=== PATIENT | female | born 1990 | race Caucasian/White ===

== ENCOUNTER 2016-12-18 16:35 | Emergency (ER) | payer OTHER ==
[~2016-12-18] VITALS: Ht 162.6 cm; Wt 109.0 kg
[~2016-12-18 16:35] MED LIST: LEVO150T PO; PRENTAB26 PO
[2016-12-18 16:48] VITALS: TEMP 36.8; Ht 162.6 cm; Wt 109.0 kg
[2016-12-18] MEDS ORDERED: SODIUM CHLORIDE 0.9% 1000ML 2,000 ML IV STA (17:23)
[2016-12-18] MEDS ORDERED: ACETAMINOPHEN 500 MG TAB PO STA (17:23)
[2016-12-18] MEDS ORDERED: LOPERAMIDE HCL 2 MG CAP PO STA (17:23)
[2016-12-18] MEDS ORDERED: BCPILLS PO (17:37)
--- NOTE | 2016-12-18 17:48 | EMERGENCY ROOM VISIT NOTE ---
History Report prepared by Arlet: Jose Aviles Under the Supervision of: Dr. Aydin Carroll M.D. First contact with patient: 17:17 Chief Complaint: DEHYDRATION Stated Complaint: DIARRHEA, CRAMPS, STOMACH PAIN, DEHYDRATATION Nursing Triage Summary: triage note: pt reports she got sick in the [facility] last thursday - returned on thursday - diarrhea, abd cramping, nausea. pt denies any ill contact. History of Present Illness The patient is a 26 year old female who presents to the Emergency Room with complaints of intermittent diarrhea that started six days ago. She rates her discomfort as a 10/10 in severity. She reports that she visited the [facility] 9 days ago and started to experience diarrhea and stomach cramps six days ago. The patient states that she returned home four days ago and has still been feeling ill. She reports that she was experiencing dehydration, diaphoresis , and chills last night and has not been able to eat because she would experience diarrhea each time she ate. She reports she has been to the [facility] six times and gets sick every time but admits she may have ingested water this time. She admits that she has abdominal pain whenever she feels she needs to have a bowel movement. The patient denies being sick this long after her prior trips and denies previous abdominal pain. The patient denies taking any medication for her symptoms. She reports that she is currently taking Synthroid and Control Pills daily. The patient denies urinary symptoms and . Source of History: patient Onset: 6 days ago Position: other (global) Symptom Intensity: 10/10 Timing: intermittent Modifying Factors (Worsening): eating Associated Symptoms: + fevers, + chills, + diaphoresis, + abdominal pain, No urinary symptoms Review of Systems See HPI for pertinent positives & negatives. A total of 10 systems reviewed and were otherwise negative. Past Medical & Surgical Medical Problems: (1) Hypertension (2) with 39 completed weeks gestation Family History Patient reports no known family medical history. Social History Smoking Status: Never Smoker Drug Use: none Marital Status: in relationship Current/Historical Medications Scheduled Control Pills ( Control Pills), 1 TAB PO DAILY Levothyroxine Sodium (Synthroid), 1 TAB PO DAILY Allergies Coded Allergies: No Known Allergies (Unverified , 12/18/16) PER MIGUEL IN L&D Physical Exam Vital Signs Date Time Temp Pulse Resp B/P (MAP) Pulse Ox O2 Delivery O2 Flow Rate FiO2 12/18/16 20:16 80 122/72 96 12/18/16 16:48 36.8 68 18 127/79 99 Room Air Physical Exam GENERAL: Patient is in no acute distress. HEENT: No acute trauma, normocephalic atraumatic, mucous membranes moist, no nasal congestion, no scleral icterus. NECK: No stridor, no adenopathy, no meningismus, trachea is midline. LUNGS: Clear to auscultation bilaterally, no wheeze, no rhonchi, breath sounds equal. HEART: Without murmurs gallops or rubs, regular rate and rhythm. ABDOMEN: Soft, nontender, bowel sounds positive, no hernias, no peritonitis. EXTREMITIES: No cyanosis or edema, full range of motion of all the joints without pain or difficulty, no signs for acute trauma. NEUROLOGIC: Oriented x 3, no acute motor or sensory deficits, no focal weakness. SKIN: No rash, no jaundice, no diaphoresis. Medical Decision & Procedures Laboratory Results 12/18/16 17:50 Red Blood Count 4.88, Mean Corpuscular Volume 88.7, Mean Corpuscular Hemoglobin 30.9, Mean Corpuscular Hemoglobin Concent 34.9, Mean Platelet Volume 9.8, Neutrophils (%) (Auto) 76.0, Lymphocytes (%) (Auto) 14.0, Monocytes (%) (Auto) 9.1, Eosinophils (%) (Auto) 0.6, Basophils (%) (Auto) 0.2, Neutrophils # (Auto) 6.56, Lymphocytes # (Auto) 1.21, Monocytes # (Auto) 0.79, Eosinophils # (Auto) 0.05, Basophils # (Auto) 0.02 12/18/16 17:50 Test 12/18/16 17:50 White Blood Count 8.64 K/uL (4.8-10.8) Red Blood Count 4.88 M/uL (4.2-5.4) Hemoglobin 15.1 g/dL (12.0-16.0) Hematocrit 43.3 % (37-47) Mean Corpuscular Volume 88.7 fL (80-100) Mean Corpuscular Hemoglobin 30.9 pg (25-34) Mean Corpuscular Hemoglobin Concent 34.9 g/dl (32-36) Platelet Count 245 K/uL (130-400) Mean Platelet Volume 9.8 fL (7.4-10.4) Neutrophils (%) (Auto) 76.0 % Lymphocytes (%) (Auto) 14.0 % Monocytes (%) (Auto) 9.1 % Eosinophils (%) (Auto) 0.6 % Basophils (%) (Auto) 0.2 % Neutrophils # (Auto) 6.56 K/uL (1.4-6.5) Lymphocytes # (Auto) 1.21 K/uL (1.2-3.4) Monocytes # (Auto) 0.79 K/uL (0.11-0.59) Eosinophils # (Auto) 0.05 K/uL (0-0.5) Basophils # (Auto) 0.02 K/uL (0-0.2) RDW Standard Deviation 40.5 fL (36.4-46.3) RDW Coefficient of Variation 12.5 % (11.5-14.5) Immature Granulocyte % (Auto) 0.1 % Immature Granulocyte # (Auto) 0.01 K/uL (0.00-0.02) Anion Gap 9.0 mmol/L (3-11) Est Creatinine Clear Calc Drug Dose 104.7 ml/min Estimated GFR () 91.3 Estimated GFR (Non- 78.8 BUN/Creatinine Ratio 4.6 (10-20) Calcium Level 9.3 mg/dl (8.5-10.1) Magnesium Level 2.3 mg/dl (1.8-2.4) Total Bilirubin 0.6 mg/dl (0.2-1) Aspartate Amino Transf (AST/SGOT) 30 U/L (15-37) Alanine Aminotransferase (ALT/SGPT) 64 U/L (12-78) Alkaline Phosphatase 109 U/L (45-117) Total Protein 8.2 gm/dl (6.4-8.2) Albumin 3.7 gm/dl (3.4-5.0) Globulin 4.5 gm/dl (2.5-4.0) Albumin/Globulin Ratio 0.8 (0.9-2) Human Chorionic Gonadotropin, Qual NEG (NEG) Laboratory results reviewed by me. Medications Administered Medications (Trade) Dose Ordered Sig/Bella Route Start Time Stop Time Status Last Admin Dose Admin Sodium Chloride 2,000 ml @ 999 mls/hr Q2H1M STAT IV 12/18/16 17:23 12/18/16 19:23 DC 12/18/16 17:56 999 MLS/HR Loperamide HCl (Imodium Cap) 4 mg NOW STAT PO 12/18/16 17:23 12/18/16 17:26 DC 12/18/16 17:38 4 MG Acetaminophen (Tylenol Tab) 1,000 mg NOW STAT PO 12/18/16 17:23 12/18/16 17:26 DC 12/18/16 17:38 1,000 MG ED Course 1717: The patient was evaluated in room A12B. A complete history and physical exam was performed. 172: Tylenol Tab 1000 mg PO, Imodium Cap 4 mg PO, Sodium Chloride 2000 ml @ 999 mls/hr IV. 2006: I reevaluated the patient. I discussed results and discharge instructions : She verbalized understanding and agreement. The patient is ready for discharge. Medical Decision The differential diagnosis includes but is not limited to: dehydration, electrolyte imbalance, renal failure, colitis, diverticulitis, Clostridium Difficile, E. Coli, bacterial intestinal infection, viral intestinal infection. Medication Reconciliation: I attest that I have personally reviewed the patient' s current medication list. Blood Pressure Screening: Patient was found to have normal blood pressure on screening and does not require follow-up. There is no leukocytosis or concerning anemia. No significant electrolyte abnormality, kidney failure or hepatitis. On exam, the patient had no peritonitis, she was not toxic or febrile. The patient was not able to provide a stool sample for testing. The patient was given IV saline, oral Imodium. She received oral Tylenol. The patient is doing well, she is anxious to be discharged. She will stick to a very bland and simple diet, Imodium for diarrhea if needed. She will bring in a stool sample for testing when able. If worsening, she can return. Her illness is likely food or water borne. Impression Primary Impression: Diarrhea Additional Impression: Dehydration Scribe Attestation The scribe's documentation has been prepared under my direction and personally reviewed by me in its entirety. I confirm that the note above accurately reflects all work, treatment, procedures, and medical decision making performed by me. Departure Information Dispostion Home / Self-Care Referrals No Doctor, Assigned (PCP) Forms HOME CARE DOCUMENTATION FORM, IMPORTANT VISIT INFORMATION, WORK / SCHOOL INSTRUCTIONS Patient Instructions [facility] Additional Instructions bland diet---crackers, soup, toast, gatorade tylenol for pain immodium for diarrhea return if worsening bring in stool sample for testing as we discussed Problem Qualifiers
[2016-12-18 18:03] LABS: BASO % 0.2 %; BASO ABS # 0.02 K/uL (0-0.2); COMPLETE YES; EOS % 0.6 %; HEMATOCRIT 43.3 % (37-47); IG% 0.1 %; LYMPH ABS # 1.21 K/uL (1.2-3.4); MEAN CELL VOLUME 88.7 fL (80-100); MEAN CORPUSCULAR HEMOGLOBIN 30.9 pg (25-34); MEAN CORPUSCULAR HGB CONC 34.9 g/dl (32-36); MEAN PLATELET VOLUME 9.8 fL (7.4-10.4); MONO % 9.1 %; PLATELET COUNT 245 K/uL (130-400); RED BLOOD COUNT 4.88 M/uL (4.2-5.4); WHITE BLOOD COUNT 8.64 K/uL (4.8-10.8)
[2016-12-18 18:22] LABS: PREG INTERNAL NEGATIVE QC NEG CLEAR BACKGROUND; PREG INTERNAL POSITIVE QC POS CONTROL LINE
[2016-12-18 18:25] LABS: BUN/CREATININE RATIO 4.6 (10-20); CALCIUM 9.3 mg/dl (8.5-10.1); MAGNESIUM 2.3 mg/dl (1.8-2.4); POTASSIUM 3.4 mmol/L (3.5-5.1)
[2016-12-18 18:28] LABS: ALB/GLOB RATIO 0.8 (0.9-2)
[2016-12-18 20:16] VITALS: BP 122/72; PULSE 80; O2SAT 96
--- NOTE | 2016-12-19 17:08 | Pharmacy Progress Note ---
ED Pharmacist Culture FollowUp Date of Service: Dec 19, 2016. Called patient regarding stool culture with positive C. diff. Patient reports persistent diarrhea, but her symptoms have not worsened. She has not taken any Immodium (since her dose here). Counseled on the following: * Do not take any more Immodium (decreased clearance of C. diff toxin) * Avoid alcohol (even mouthwash) for 2 weeks 2nd severe reaction while on metronidazole * Other side effects of Flagyl include (but are not limited to) GI upset and metallic taste * Proper handwashing with soap and water, especially after using the bathroom * Consider separate bathroom from family members for the time being * Return to ED for any worsening, but especially for abdominal pain or fever * Monitor for symptoms in close contacts / family Patient acknowledged understanding of the above. Prescription for metronidazole 500 mg po TID x10 days, 0 refill, called to [facility] at the patient's request. Case discussed with Dr. Ibrahim, who is the prescribing provider.
== END 2016-12-18 20:17 | disposition home or self-care (01) ==
LOC: C.EDB 16:38 → C.EDA 20:17
DX: R19.7 Diarrhea, unspecified (principal); E86.0 Dehydration; I10 Essential (primary) hypertension; Z79.899 Other long term (current) drug therapy

== ENCOUNTER → 2016-12-19 | Outpatient (CLI) | payer OTHER ==
[~2016-12-19] MED LIST changes: +BCPILLS PO; -PRENTAB26 PO
--- NOTE | 2016-12-22 17:56 | Pharmacy Progress Note ---
ED Pharmacist Culture FollowUp Date of Service: Dec 22, 2016. 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 She had recently be dx with C diff and started on Flagyl PO x 10 days. Salmonella serogroup D includes the following: s. typhi (responsible for typhoid fever), s enteritidis and s gris. The nontyphoidal species in this group usually do not warrant antimicrobial therapy, however s typhi does require treatment. Usually treatment is determined by susceptibility testing however our lab does not perform this nor does it speciate to determine if treatment required. The patient traveled to the [place]. Had she acquired the infection in [place] there would be a greater risk of infxn with fluoroquinolone resistant salmonella. Will treat her empirically with Cipro 500mg PO BID x 7 days in lieu of sensitivity data; auth by Dr Ibrahim. The patient was contacted at home via phone today. The patient reports improved symptoms and is only having one loose BM per day now. Rx for Cipro called to [facility] per patient's request. Again stressed the importance of frequent hand washing with soap and water and avoidance of food prep if possible. Advised patient she will likely be infectious as long as she is having symptoms.
== END | disposition home or self-care (01) ==
LOC: C.LABSPEC 10:49
PROVIDERS: ATTEND Emergency Medicine
DX: R19.7 Diarrhea, unspecified (principal)

== ENCOUNTER → 2017-07-08 | Outpatient (CLI) | payer OTHER ==
[2017-07-08 12:11] LABS: BASO % 0.2 %; BASO ABS # 0.02 K/uL (0-0.2); EOS % 2.6 %; EOS ABS # 0.26 K/uL (0-0.5); HEMATOCRIT 39.4 % (37-47); HEMOGLOBIN 13.7 g/dL (12.0-16.0); IG# 0.08 K/uL (0.00-0.02); LYMPH % 18.9 %; LYMPH ABS # 1.89 K/uL (1.2-3.4); MEAN CELL VOLUME 88.5 fL (80-100); MEAN CORPUSCULAR HEMOGLOBIN 30.8 pg (25-34); MEAN CORPUSCULAR HGB CONC 34.8 g/dl (32-36); MEAN PLATELET VOLUME 10.2 fL (7.4-10.4); MONO % 5.8 %; MONO ABS # 0.58 K/uL (0.11-0.59); NEUT % 71.7 %; NEUT ABS # 7.16 K/uL (1.4-6.5); PLATELET COUNT 228 K/uL (130-400); RED CELL DISTRIBUTION WIDTH CV 13.1 % (11.5-14.5); WHITE BLOOD COUNT 9.99 K/uL (4.8-10.8)
[2017-07-08 12:34] LABS: THYROXINE (T4) 9.2 mcg/dl (4.5-10.9)
== END | disposition home or self-care (01) ==
LOC: C.LAB 09:13
PROVIDERS: ATTEND Obstetrics & Gynecology
DX: Z34.82 Encounter for supervision of other normal pregnancy, second trimester (principal)

== ENCOUNTER → 2017-08-03 | Outpatient (CLI) | payer OTHER | END | disposition home or self-care (01) | LOC: C.LABSPEC 14:53 | PROVIDERS: ATTEND Obstetrics & Gynecology | DX: O26.92 Pregnancy related conditions, unspecified, second trimester (principal); J02.9 Acute pharyngitis, unspecified; R09.89 Other specified symptoms and signs involving the circulatory and respiratory systems; Z3A.00 Weeks of gestation of pregnancy not specified ==

== ENCOUNTER → 2017-09-21 | Outpatient (CLI) | payer OTHER | END | disposition home or self-care (01) | LOC: C.LAB 18:08 | PROVIDERS: ATTEND Obstetrics & Gynecology | DX: Z34.82 Encounter for supervision of other normal pregnancy, second trimester (principal) ==

== ENCOUNTER → 2017-09-28 | Outpatient (CLI) | payer OTHER | END | disposition home or self-care (01) | LOC: C.LAB 17:15 | PROVIDERS: ATTEND Obstetrics & Gynecology | DX: O99.283 Endocrine, nutritional and metabolic diseases complicating pregnancy, third trimester (principal); Z3A.00 Weeks of gestation of pregnancy not specified; R94.6 Abnormal results of thyroid function studies ==

== ENCOUNTER → 2017-10-08 | Outpatient (CLI) | payer OTHER | END | disposition home or self-care (01) | LOC: C.LAB 11:00 | PROVIDERS: ATTEND Obstetrics & Gynecology | DX: R94.6 Abnormal results of thyroid function studies (principal); O26.893 Other specified pregnancy related conditions, third trimester; Z3A.00 Weeks of gestation of pregnancy not specified ==

== ENCOUNTER → 2017-11-09 | Outpatient (CLI) | payer OTHER | END | disposition home or self-care (01) | LOC: C.LAB 17:10 | PROVIDERS: ATTEND Obstetrics & Gynecology | DX: O26.899 Other specified pregnancy related conditions, unspecified trimester (principal); R94.6 Abnormal results of thyroid function studies; Z3A.00 Weeks of gestation of pregnancy not specified ==

== ENCOUNTER → 2018-02-01 | Outpatient (CLI) | payer OTHER ==
[~2018-02-01] MED LIST changes: -BCPILLS PO; +LEVO112T2 PO; -LEVO150T PO; +PRENTAB26 PO
== END | disposition home or self-care (01) ==
LOC: C.PAPS 18:10
PROVIDERS: ATTEND Obstetrics & Gynecology
DX: Z39.2 Encounter for routine postpartum follow-up (principal)